=== PATIENT | female | born 1985 | race Caucasian/White ===

== ENCOUNTER 2017-12-08 17:13 | Inpatient (IN) | payer OTHER, BC ==
[2017-12-08 18:30] LABS: ADD MAN DIFF? NO
[2017-12-08 18:32] LABS: WHITE BLOOD COUNT 11.1 10^3/ul (4.8-10.8)
[2017-12-08 18:32] LABS: BASOPHIL # 0.1 10^3/ul (0.0-0.1); BASOPHILS % 0.5 % (0.0-2.0); EOSINOPHILS # 0.1 10^3/ul (0.0-0.5); EOSINOPHILS % 0.7 % (0.0-7.0); HEMOGLOBIN 10.1 g/dl (12.0-16.0); LYMPHOCYTES # 1.8 10^3/ul (0.8-2.9); LYMPHOCYTES % 16.1 % (15.0-51.0); MEAN CORPUSCULAR HEMOGLOBIN 31.3 pg (29.0-33.0); MEAN CORPUSCULAR HGB CONC 33.7 g/dl (32.0-37.0); MEAN CORPUSCULAR VOLUME 92.9 fl (82.0-101.0); MONOCYTE # 0.6 10^3/ul (0.3-0.9); NEUTROPHIL # 8.6 10^3/ul (1.6-7.5); NEUTROPHILS % 77.4 % (39.0-77.0); PLATELET COUNT 314 10^3/UL (140-415); RED BLOOD COUNT 3.23 10^6/ul (4.20-5.40); RED CELL DISTRIBUTION WIDTH 13.6 % (11.5-14.5)
[2017-12-08 18:58] LABS: ANION GAP 16 (8-16); BLOOD UREA NITROGEN 14 mg/dl (7-20); CALCIUM 9.1 mg/dl (8.4-10.2); CARBON DIOXIDE 20 mmol/L (21-31); CHLORIDE 105 mmol/L (97-110); CREATININE 0.63 mg/dl (0.44-1.00); GLUCOSE 142 mg/dl (70-220); POTASSIUM 3.4 mmol/L (3.5-5.1); SODIUM 138 mmol/L (135-144)
[2017-12-08 21:12] LABS: ADD UMIC YES; UR ASCORBIC ACID 40 mg/dL (NEGATIVE); UR BILIRUBIN (Dip) NEGATIVE (NEGATIVE); UR BLOOD (Dip) 3+ mg/dL (NEGATIVE); UR CLARITY CLOUDY (CLEAR); UR COLOR RED (YELLOW); UR GLUCOSE (Dip) NEGATIVE (NEGATIVE); UR KETONES (Dip) NEGATIVE (NEGATIVE); UR LEUKOCYTE ESTERASE (Dip) TRACE Leu/ul (NEGATIVE); UR MUCUS FEW /HPF (NONE SEEN); UR NITRITE (Dip) NEGATIVE (NEGATIVE); UR RBC > 182 /HPF (0-5); UR SPECIFIC GRAVITY (Dip) 1.027 (1.003-1.030); UR TOTAL PROTEIN (Dip) 2+ mg/dl (NEGATIVE); UR UROBILINOGEN (Dip) 1+ mg/dL (NEGATIVE); UR WBC 75 /HPF (0-5)
[2017-12-08] MEDS: ONDANSETRON 4 MG INJ IV (21:33)
[2017-12-08] MEDS: morphine 4 MG/ML VIAL IV (21:33)
[2017-12-08] MEDS: SOD CHLORIDE 0.9% 1,000 ML IV ×2 (21:33→23:20)
[2017-12-08 21:56] LABS: HEMATOCRIT 24.3 % (37.0-47.0); HEMOGLOBIN 8.4 g/dl (12.0-16.0)
[2017-12-08] MEDS: LIDOCAINE 1%/EPI 30 ML INJ INJ (22:15)
[2017-12-08] MEDS: CEFTRIAXONE 1 GM/50 ML (PMX) 50 ML IVPB (23:20)
[2017-12-08] MEDS ORDERED: ACETAMINOPHEN 325 MG TAB PO (23:30)
[2017-12-08] MEDS ORDERED: ONDANSETRON 4 MG INJ IV (23:30)
[2017-12-09 00:07] LABS: HEMATOCRIT 22.5 % (37.0-47.0); HEMOGLOBIN 7.6 g/dl (12.0-16.0)
[2017-12-09] MEDS: MISOPROSTOL 200 MCG TAB PO (03:15)
[2017-12-09 05:19] LABS: ADD MAN DIFF? NO
[2017-12-09 05:25] LABS: WHITE BLOOD COUNT 11.7 10^3/ul (4.8-10.8)
[2017-12-09 05:25] LABS: ABNORMAL IP MESSAGE 1; BASOPHILS % 0.2 % (0.0-2.0); EOSINOPHILS % 0.3 % (0.0-7.0); HEMATOCRIT 20.2 % (37.0-47.0); LYMPHOCYTES # 2.1 10^3/ul (0.8-2.9); LYMPHOCYTES % 18.1 % (15.0-51.0); MEAN CORPUSCULAR HEMOGLOBIN 32.1 pg (29.0-33.0); MEAN CORPUSCULAR HGB CONC 34.2 g/dl (32.0-37.0); MEAN PLATELET VOLUME 10.2 fl (7.4-10.4); MONOCYTE # 0.7 10^3/ul (0.3-0.9); MONOCYTES % 5.9 % (0.0-11.0); NEUTROPHIL # 8.8 10^3/ul (1.6-7.5); NEUTROPHILS % 75.1 % (39.0-77.0); PLATELET COUNT 223 10^3/UL (140-415); RED BLOOD COUNT 2.15 10^6/ul (4.20-5.40); RED CELL DISTRIBUTION WIDTH 13.8 % (11.5-14.5)
[2017-12-09 05:35] LABS: HEMOGLOBIN 6.9 g/dl (12.0-16.0); POSITIVE DIFF @See below
[2017-12-09 11:08] LABS: IMMEDIATE SPIN CROSSMATCH 1 2
[2017-12-09 20:13] LABS: HEMATOCRIT 25.9 % (37.0-47.0); HEMOGLOBIN 9.1 g/dl (12.0-16.0)
[2017-12-09] MEDS ORDERED: MIDAZOLAM 1 MG/ML 2 ML INJ IV (21:30)
[2017-12-09] MEDS ORDERED: hydrALAzine 20 MG INJ IV (21:30)
[2017-12-09] MEDS ORDERED: HYDROmorphONE (0.2 MG/ML) 10ML SYG IV ×3 (21:30)
[2017-12-09] MEDS ORDERED: METOCLOPRAMIDE 10 MG INJ IV (21:30)
[2017-12-09] MEDS ORDERED: ONDANSETRON 4 MG INJ IV (21:30)
[2017-12-09] MEDS ORDERED: FENTAnyl 50 MCG/ML VIAL IV ×3 (21:30)
[2017-12-09] MEDS ORDERED: MEPERIDINE 25 MG INJ IV (21:30)
[2017-12-09] MEDS ORDERED: LABETALOL HCL 20MG INJ IV (21:30)
[2017-12-09] MEDS ORDERED: EPHEDrine SULFATE 50 MG/5 ML SYG IV (21:30)
[2017-12-09] MEDS ORDERED: OXYCODONE/ACETAMINOPHEN (5/325) TAB PO ×2 (21:30)
[2017-12-09] MEDS ORDERED: DIPHENHYDRAMINE 50 MG INJ IV (21:30)
[2017-12-09] MEDS ORDERED: LIDOCAINE 2% (SDV) 5 ML INJ (21:36)
[2017-12-09] MEDS ORDERED: PROPOFOL 20 ML (21:36)
[2017-12-09] MEDS ORDERED: CEFAZOLIN 1 GM INJ (22:07)
[2017-12-09] MEDS ORDERED: ONDANSETRON 4 MG INJ (22:09)
[2017-12-09] MEDS ORDERED: METOCLOPRAMIDE 10 MG INJ (22:09)
[2017-12-09] MEDS ORDERED: OXYTOCIN 10 UNIT INJ (22:15)
[2017-12-09] MEDS ORDERED: VASOPRESSIN 20 UNITS INJ (22:16)
[2017-12-09] MEDS ORDERED: METHYLERGONOVINE 0.2 MG INJ (22:20)
[2017-12-09] MEDS ORDERED: IBUPROFEN 800 MG TAB PO (23:00)
[2017-12-10] MEDS: DEXTROSE 5%-0.45% NACL 1,000 ML IV ×3 (00:03→16:01)
[2017-12-10 05:13] LABS: ADD MAN DIFF? NO
[2017-12-10 05:19] LABS: WHITE BLOOD COUNT 6.3 10^3/ul (4.8-10.8)
[2017-12-10 05:19] LABS: BASOPHIL # 0.1 10^3/ul (0.0-0.1); BASOPHILS % 0.8 % (0.0-2.0); EOSINOPHILS # 0.2 10^3/ul (0.0-0.5); EOSINOPHILS % 2.6 % (0.0-7.0); HEMATOCRIT 23.6 % (37.0-47.0); HEMOGLOBIN 8.1 g/dl (12.0-16.0); LYMPHOCYTES % 31.5 % (15.0-51.0); MEAN CORPUSCULAR HEMOGLOBIN 31.4 pg (29.0-33.0); MEAN CORPUSCULAR HGB CONC 34.3 g/dl (32.0-37.0); MEAN CORPUSCULAR VOLUME 91.5 fl (82.0-101.0); MEAN PLATELET VOLUME 10.1 fl (7.4-10.4); MONOCYTE # 0.4 10^3/ul (0.3-0.9); MONOCYTES % 6.4 % (0.0-11.0); NEUTROPHIL # 3.7 10^3/ul (1.6-7.5); NEUTROPHILS % 58.4 % (39.0-77.0); PLATELET COUNT 176 10^3/UL (140-415); RED BLOOD COUNT 2.58 10^6/ul (4.20-5.40); RED CELL DISTRIBUTION WIDTH 14.3 % (11.5-14.5)
[2017-12-10] MEDS ORDERED: morphine 2 MG INJ IV (14:00)
[2017-12-10] MEDS: ACETAMINOPHEN 325 MG TAB PO ×2 (14:19→21:32)
[2017-12-10] MEDS: CEFTRIAXONE 1 GM/50 ML (PMX) 50 ML IVPB (16:09)
[2017-12-10] MEDS: DOCUSATE SODIUM 100 MG CAP PO (20:16)
[2017-12-11 05:55] LABS: ADD MAN DIFF? NO
[2017-12-11 06:00] LABS: WHITE BLOOD COUNT 4.6 10^3/ul (4.8-10.8)
[2017-12-11 06:00] LABS: BASOPHILS % 0.9 % (0.0-2.0); EOSINOPHILS # 0.2 10^3/ul (0.0-0.5); HEMATOCRIT 24.2 % (37.0-47.0); HEMOGLOBIN 8.1 g/dl (12.0-16.0); LYMPHOCYTES # 1.7 10^3/ul (0.8-2.9); LYMPHOCYTES % 38.1 % (15.0-51.0); MEAN CORPUSCULAR HEMOGLOBIN 31.2 pg (29.0-33.0); MEAN CORPUSCULAR HGB CONC 33.5 g/dl (32.0-37.0); MEAN CORPUSCULAR VOLUME 93.1 fl (82.0-101.0); MEAN PLATELET VOLUME 10.2 fl (7.4-10.4); MONOCYTE # 0.4 10^3/ul (0.3-0.9); MONOCYTES % 8.1 % (0.0-11.0); NEUTROPHIL # 2.2 10^3/ul (1.6-7.5); NEUTROPHILS % 47.7 % (39.0-77.0); PLATELET COUNT 184 10^3/UL (140-415); RED CELL DISTRIBUTION WIDTH 14.2 % (11.5-14.5)
[2017-12-11] MEDS: ACETAMINOPHEN 325 MG TAB PO (06:15)
[2017-12-11 06:27] LABS: ANION GAP 10 (8-16); BLOOD UREA NITROGEN 5 mg/dl (7-20); CALCIUM 8.4 mg/dl (8.4-10.2); CARBON DIOXIDE 27 mmol/L (21-31); CHLORIDE 108 mmol/L (97-110); CREATININE 0.58 mg/dl (0.44-1.00); GLUCOSE 86 mg/dl (70-220); POTASSIUM 3.3 mmol/L (3.5-5.1); SODIUM 142 mmol/L (135-144)
[2017-12-11] MEDS: DOCUSATE SODIUM 100 MG CAP PO (09:00)
[2017-12-11] MEDS: POTASSIUM CHLORIDE (SR) 20 MEQ TAB PO (12:23)
[2017-12-11] MEDS: CIPROFLOXACIN 500 MG TAB PO (17:21)
== END 2017-12-11 18:25 | disposition home or self-care (01) | DRG 770 ==
LOC: MS1 23:09 → E/R 17:13
PROC: 10D17Z9 Manual Extraction of Products of Conception, Retained, Via Natural or Artificial Opening (ICD-10-PCS; principal; 2017-12-09 19:30)
PROC: 30233N1 Transfusion of Nonautologous Red Blood Cells into Peripheral Vein, Percutaneous Approach (ICD-10-PCS; 2017-12-09 19:30)
PROC: 0HQ1XZZ Repair Face Skin, External Approach (ICD-10-PCS; 2017-12-09 21:41)
DX: O03.4 Incomplete spontaneous abortion without complication (principal); D62 Acute posthemorrhagic anemia; N39.0 Urinary tract infection, site not specified; S01.81XA Laceration without foreign body of other part of head, initial encounter; W18.30XA Fall on same level, unspecified, initial encounter; Y92.538 Other ambulatory health services establishments as the place of occurrence of the external cause; R51 Headache
CPT/HCPCS: 36430; 70450; 76830; 76856; 80048; 81001; 83735; 85014; 85018; 85025; 86850; 86900; 86901; 86920; 87086; 88305; 96374; 96375; 99285-25